=== PATIENT | male | born 1980 | race Caucasian/White ===

== ENCOUNTER 2022-04-26 18:19 | Emergency (ER) | payer OTHER ==
[2022-04-26 23:07] LABS: RED BLOOD COUNT 4.12 M/UL (4.20-5.50); WHITE BLOOD COUNT 8.5 K/UL (4.5-11.0)
[2022-04-26 23:23] LABS: BUN/CREATININE RATIO 14 (0-10)
== END 2022-04-27 01:01 | disposition home or self-care (01) ==
LOC: ER1 18:19
PROVIDERS: Family Medicine
DX: G89.18 Other acute postprocedural pain (principal); M25.572 Pain in left ankle and joints of left foot; F17.200 Nicotine dependence, unspecified, uncomplicated; Z88.0 Allergy status to penicillin; Z88.6 Allergy status to analgesic agent
CPT/HCPCS: 73610; 73630; 80053; 85025; 86140; 99283